=== PATIENT | male | born 1995 | race African-American/Black ===

== ENCOUNTER 2017-10-18 20:34 | Emergency (ER) | payer OTHER, MEDICAID ==
[~2017-10-18] VITALS: Ht 167.6 cm; Wt 62.3 kg
[2017-10-18 20:42] VITALS: BP 142/87
--- NOTE | 2017-10-18 20:53 | NUR ---
PATIENT AMBULATED TO ER BED 12.
--- NOTE | 2017-10-18 21:08 | NUR ---
PATIENT PRESENTS TO ED WITH COUGH AND CONGESTION. DENIES N/V/D; SKIN IS PINK/WARM/DRY; AAOX4 WITH EVEN AND STEADY GAIT; PATIENT STATES PAIN OF 0/10 AT THIS TIME; VSS; PATIENT POSITIONED FOR COMFORT; HOB ELEVATED; BEDRAILS UP X2; BED DOWN. ER MD MADE AWARE OF PT STATUS.
--- NOTE | 2017-10-18 21:14 | NUR ---
DC BY DR. DEWEY. Patient discharged with v/s stable. Written and verbal after care instructions given and explained. Patient alert, oriented and verbalized understanding of instructions. Ambulatory with steady gait. All questions addressed prior to discharge. ID band removed. Patient advised to follow up with PMD. Rx of AUGMENEETIN AND PROMETHAZINE DM given. Patient educated on indication of medication including possible reaction and side effects. Opportunity to ask questions provided and answered.
[2017-10-18 21:16] VITALS: BP 141/85
== END 2017-10-18 21:16 | disposition home or self-care (01) ==
LOC: MED 20:34
DX: J20.9 Acute bronchitis, unspecified (principal)
CPT/HCPCS: 99283

== ENCOUNTER 2018-12-20 20:02 | Emergency (ER) | payer OTHER, MEDICAID ==
[~2018-12-20] VITALS: Ht 170.2 cm; Wt 63.5 kg
[2018-12-20 20:15] VITALS: BP 128/70
--- NOTE | 2018-12-20 20:17 | NUR ---
TO LOBBY AWAITING BED, VSS.
--- NOTE | 2018-12-20 20:27 | NUR ---
PT. AMBULATED TO ER BED 3
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
--- NOTE | 2018-12-20 21:44 | NUR ---
DR. CHAVEZ BEDSIDE EVALUATING PT
[2018-12-20] MEDS ORDERED: BACITRACIN OINT 500 UNITS/GM PKT TP ONE (21:50)
--- NOTE | 2018-12-20 21:56 | NUR ---
Patient discharged with v/s stable. Written and verbal after care instructions given and explained. Patient verbalized understanding. Ambulatory with steady gait. All questions addressed prior to discharge. Advised to follow up with PMD.
[2018-12-20 21:57] VITALS: BP 128/70
== END 2018-12-20 21:56 | disposition home or self-care (01) ==
LOC: MED 20:02
DX: T23.001A Burn of unspecified degree of right hand, unspecified site, initial encounter (principal); X08.8XXA Exposure to other specified smoke, fire and flames, initial encounter; Y93.89 Activity, other specified; Y92.89 Other specified places as the place of occurrence of the external cause; Y99.8 Other external cause status
CPT/HCPCS: 99283

== ENCOUNTER 2024-03-11 08:41 | Emergency (ER) | payer MEDICAID, OTHER ==
[~2024-03-11] VITALS: Ht 167.6 cm; Wt 72.6 kg
[2024-03-11 08:59] VITALS: BP 139/92; PULSE 63; RESP 19; TEMP 97.8; O2SAT 100
[2024-03-11 09:49] LABS: BASOPHILS % (AUTO) 0.7 % (0.0-2.0); EOSINOPHILS # (AUTO) 0.1 K/uL (0-0.4); EOSINOPHILS % (AUTO) 0.8 % (0.0-4.0); HEMATOCRIT 50.1 % (36-52); HEMOGLOBIN 16.9 g/dL (12.0-18.0); LYMPHOCYTES # (AUTO) 2.1 K/uL (2.0-11.5); MEAN CORPUSCULAR HEMOGLOBIN 30 pg (27-31); MEAN CORPUSCULAR HGB CONC 34 g/dL (33-37); MEAN CORPUSCULAR VOLUME 90.1 fL (80-94); MONOCYTES # (AUTO) 0.4 K/uL (0.8-1.0); MONOCYTES % (AUTO) 6.4 % (1.7-9.3); NEUTROPHILS # (AUTO) 4.1 K/uL (1.8-7.7); NEUTROPHILS % (AUTO) 61.1 % (42.2-75.2); PLATELET COUNT (AUTO) 242 K/uL (140-450); RED BLOOD CELL COUNT(AUTO) 5.56 MIL/uL (4.20-6.10); RED CELL DISTRIBUTION WIDTH 13.6 % (11.6-13.7); WHITE BLOOD COUNT (AUTO) 6.8 K/uL (4.8-10.8)
[2024-03-11 09:58] LABS: ANION GAP 15.4 (8-16); CALCIUM 9.2 mg/dL (8.5-10.1); CARBON DIOXIDE 28.3 mmol/L (21-32); CREATININE 1.2 mg/dL (0.6-1.3); POTASSIUM 3.7 mmol/L (3.5-5.1)
[2024-03-11] MEDS: ONDANSETRON 4 MG/2 ML VIAL IVP ONE (10:03)
[2024-03-11 10:04] LABS: ALBUMIN 4.5 g/dL (3.4-5.0); BILIRUBIN,DIRECT 0.2 mg/dL (0.0-0.3); TOTAL PROTEIN, SERUM 8.6 g/dL (6.4-8.2)
[2024-03-11] MEDS: KETOROLAC 30 MG/ML VIAL IVP ONE (10:06)
[2024-03-11] MEDS: NACL 0.9% 1,000 ML IV ONE (10:08)
[2024-03-11] MEDS ORDERED: ONDA-188 PO (10:48)
== END 2024-03-11 10:57 | disposition home or self-care (01) ==
LOC: MED 08:41
DX: K21.9 Gastro-esophageal reflux disease without esophagitis (principal); F12.10 Cannabis abuse, uncomplicated; F10.10 Alcohol abuse, uncomplicated; Y90.9 Presence of alcohol in blood, level not specified
CPT/HCPCS: 36415; 80048; 80076; 83690; 85025; 96361; 96374; 96375; 99284; J1885; J2405; J7030